=== PATIENT | male | born 1990 | race Caucasian/White ===

== ENCOUNTER 2017-07-07 08:25 | Emergency (ER) | payer OTHER, BC ==
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
--- NOTE | 2017-07-07 09:26 | CT ---
CT cervical spine Technique: Multiple axial sections were obtained from above the C1 inferiorly to the bottom of T1. Reconstructed sagittal and coronal images were reviewed. Comparison: No previous cervical spine imaging. Findings: Visualized mastoid sinuses and middle ear cavities are clear. Posterior skull base is intact. Vertebral body heights and disc spaces are maintained. Vertebral bodies and posterior arches are intact with no fracture being seen. No bony central or bony neural foraminal stenosis is seen. No abnormal subluxation is seen on the reconstructed sagittal images. Impression: 1. Nothing acute is identified on CT study of the cervical spine. Diagnostic code #1
--- NOTE | 2017-07-07 09:29 | CT ---
Head CT Technique: Multiple axial sections through the brain were obtained. Intravenous contrast was not utilized. Comparison: No previous intracranial imaging. Findings: Ventricles along with basal cisterns and sulci over the convexities are within normal limits for the patient's age. No abnormal parenchymal densities are seen. No evidence of intracranial hemorrhage. No midline shift or mass effect is seen. Minimal mucosal thickening is noted within the ethmoid sinuses which is felt to be incidental. Other visualized sinuses are clear. No acute calvarial abnormality is seen. Impression: 1. Minimal sinus finding which is incidental. Nothing acute is identified on noncontrast head CT study. Diagnostic code #1
--- NOTE | 2017-07-07 09:32 | CT ---
CT facial bones Technique: Multiple axial sections through the facial bones were obtained. Reconstructed coronal and sagittal images were obtained. Findings: Right and left globes are symmetric. Paranasal sinuses shows minimal mucosal thickening within the right ethmoid sinus. Sinuses are otherwise clear. No facial bone fracture is identified. Impression: 1. Nothing acute is identified on CT study of the facial bones. Diagnostic code #1
[2017-07-07 10:46] VITALS: BP 124/65
== END 2017-07-07 09:54 | disposition home or self-care (01) ==
LOC: JD.ED 08:25
DX: S06.0X0A Concussion without loss of consciousness, initial encounter (principal); S05.12XA Contusion of eyeball and orbital tissues, left eye, initial encounter; S40.811A Abrasion of right upper arm, initial encounter; F17.210 Nicotine dependence, cigarettes, uncomplicated; V83.6XXA Passenger of special industrial vehicle injured in nontraffic accident, initial encounter
CPT/HCPCS: 70450; 70450-26; 70486; 70486-26; 72125; 72125-26; 99283; 99284-25